=== PATIENT | male | born 1965 | race Caucasian/White ===

== ENCOUNTER 2016-09-18 23:08 | Emergency (ER) | payer OTHER ==
[2016-09-18 23:58] LABS: Hematocrit 45 % (42-52); Hemoglobin 15.1 g/dl (14.0-18.0); Mean Corpuscular HGB Conc 33 g/dl (31-36); Mean Corpuscular Hemoglobin 30 pg (27-31); Mean Corpuscular Volume 90 fL (80-94); Mean Platelet Volume 8 um3 (7.4-10.4); Red Blood Count 5.03 10^6/ul (4.0-5.4); Red Cell Distribution Width 13 % (10.5-15); White Blood Count 8.5 10^3/ul (3.5-10.8)
[2016-09-19 00:09] LABS: Albumin 4.4 g/dL (3.2-5.2); BUN/Creatinine Ratio 13.9 (8-20); Calcium 8.9 mg/dL (8.6-10.3); EGFR African American 56.6 (>60); Potassium 3.6 mmol/L (3.5-5.0); Total Bilirubin 0.4 mg/dL (0.2-1.0); Total Protein 7.4 g/dL (6.4-8.9)
[2016-09-19 00:12] LABS: Troponin I 0.03 ng/mL (<0.04)
[2016-09-19] MEDS ORDERED: NS 0.9% 1000 ML* 1,000 ML IV ONE (00:37)
[2016-09-19 01:42] VITALS: BP 160/83
--- NOTE | 2016-09-19 02:30 | ED ---
Maximiliano Everett Aidan, scribed for William hSore on 09/19/16 at 0013 . HPI Diabetic - HPI Summary HPI Summary: 51 y/o male presents to the ED with a complaint of a diabetes-related issue. He self-administered insulin just before his family sat down to eat dinner, however , before he could eat, he had to blas to the vet for a dog-related emergency. A short time after arriving at the [facility], he became very confused, so his called the ED. Pt denies any CP. - History Of Current Complaint Chief Complaint: EDDiabeticProb Time Seen by Provider: 09/18/16 23:25 Hx Obtained From: Patient Onset/Duration: Sudden Onset, Lasting Minutes, Resolved Timing: Intermittent Episode Lasting Severity Initially: Moderate Severity Currently: Mild Character: Confused Aggravating: Other - unknown Alleviating: Other - unknown Associated Signs & Symptoms: Negative Related History: DM I, Insulin Requiring - Allergies/Home Medications Allergies/Adverse Reactions: Allergies Allergy/AdvReac Type Severity Reaction Status Date / Time No Known Allergies Allergy Verified 09/18/16 23:13 PMH/Surg Hx/FS Hx/Imm Hx Endocrine/Hematology History: Reports: Hx Diabetes Denies: Hx Thyroid Disease Cardiovascular History: Reports: Hx Hypertension Denies: Hx Pacemaker/ICD Respiratory History: Denies: Hx Asthma, Hx Chronic Obstructive Pulmonary Disease (COPD) GI History: Denies: Hx Ulcer Sensory History: Denies: Hx Hearing Aid Psychiatric History: Denies: Hx Panic Disorder - Surgical History Surgery Procedure, Year, and Place: bilateral shoulder 2002, 2006; L knee 1987 ( femur, tendon and knee cap repair) - Immunization History Date of Tetanus Vaccine: utd Date of Influenza Vaccine: utd Infectious Disease History: No Infectious Disease History: Denies: Hx Clostridium Difficile, Hx Hepatitis, Hx Human Immunodeficiency Virus (HIV), Hx of Known/Suspected MRSA, Hx Shingles, Hx Tuberculosis, Hx Known/ Suspected VRE, Hx Known/Suspected VRSA, History Other Infectious Disease, Traveled Outside the [place] in Last 30 Days - Family History Known Family History: Positive: Diabetes - Social History Occupation: Employed Full-time Lives: With Family Alcohol Use: Occasionally Substance Use Type: Reports: None Smoking Status (MU): Never Smoked Tobacco Have You Smoked in the Last Year: No Review of Systems Constitutional: Other - high blood-glucose Negative: Fever, Chills, Fatigue, Skin Diaphoresis Eyes: Negative ENT: Negative Cardiovascular: Negative Respiratory: Negative Gastrointestinal: Negative Genitourinary: Negative Musculoskeletal: Negative Skin: Negative Neurological: Negative Psychological: Normal All Other Systems Reviewed And Are Negative: Yes Physical Exam Triage Information Reviewed: Yes Vital Signs On Initial Exam: Initial Vitals Temp Pulse Resp BP Pulse Ox 98.6 F 73 15 173/77 100 09/18/16 23:10 09/18/16 23:10 09/18/16 23:10 09/18/16 23:10 09/18/16 23:10 Vital Signs Reviewed: Yes Appearance: Positive: Well-Appearing, No Pain Distress Skin: Positive: Warm, Skin Color Reflects Adequate Perfusion, Dry Head/Face: Positive: Normal Head/Face Inspection Eyes: Positive: Normal ENT: Positive: Normal ENT inspection Neck: Positive: Supple, Nontender Respiratory/Lung Sounds: Positive: Clear to Auscultation, Breath Sounds Present Cardiovascular: Positive: RRR Abdomen Description: Positive: Nontender, Soft Bowel Sounds: Positive: Present Musculoskeletal: Positive: Normal Neurological: Positive: Normal Psychiatric: Positive: Affect/Mood Appropriate - [place] Coma Scale Coma Scale Total: 15 Diagnostics - Vital Signs Vital Signs Temp Pulse Resp BP Pulse Ox 09/18/16 23:10 98.6 F 73 15 173/77 100 - Laboratory Lab Results: Lab Results 09/18/16 Range/Units 23:21 POC Glucose (mg/dL) 229 H (74-106) mg/dL Result Diagrams: 09/18/16 23:45 09/18/16 23:45 Lab Statement: Any lab studies that have been ordered have been reviewed, and results considered in the medical decision making process. - EKG EKG 0007 Cardiac Rate: NL - 69 BPM EKG Rhythm: Sinus Rhythm EKG Interpretation: NO ACUTE CHANGES Diabetic Course/Dx - Course Course Of Treatment: pt had labs and ekg done and within normal limits. pt didnt eat after insulin. will dc home to follow up with pmd in three days.The patient's glucose was 229. EKG was normal. Dx of hypoglycemic attack. - Diagnoses Provider Diagnoses: hypoglycemic attack Discharge - Discharge Plan Condition: Stable Disposition: HOME Discharge Disposition Comment: Please return to the ED if symptoms worsen within 72 hours. Patient Education Materials: Hypoglycemia in a Person with Diabetes (ED) Referrals: Andrea Craig MD [Primary Care Provider] - The documentation as recorded by the Maximiliano baldwin Aidan accurately reflects the service I personally performed and the decisions made by me, William Shore.
== END 2016-09-19 01:41 | disposition home or self-care (01) ==
LOC: ED 23:08
DX: E10.649 Type 1 diabetes mellitus with hypoglycemia without coma (principal)
CPT/HCPCS: 36415; 80053; 84484; 85025; 93005; 96360; 99283

== ENCOUNTER 2017-10-13 07:17 | Day surgery (SDC) | payer OTHER ==
[~2017-10-13 07:17] MED LIST: Acetaminophen TAB* 325 MG PO PRN; Buffered Lidocaine 0.9% SYRIN* 5 ML/SYR SYRINGE INTRADERM ONE
[2017-10-13] MEDS ORDERED: Midazolam* 1 MG/ML 2 ML VIAL (2 MG) ONE ×2 (08:30→08:46)
[2017-10-13] MEDS ORDERED: fentaNYL* 50 MCG/ML 2 ML VIAL (100 MCG VIAL) ONE (08:30)
[2017-10-13] MEDS ORDERED: Tetracaine 0.5% OPTH.SOL 4 ML* 1 DROP BTL ONE ×2 (09:10→11:26)
[2017-10-13] MEDS ORDERED: Phenylephrine 2.5% OPTH.SOL* 2 ML BTL ONE ×2 (09:10→11:26)
[2017-10-13] MEDS ORDERED: Carbachol 0.01% OPH.SOL* 1.5 ML OPHTH.SOLN ONE (09:10)
[2017-10-13] MEDS ORDERED: Neomycin/Polymy/Dex OPHTH.OIN* 3.5 GM ONE ×2 (09:10→11:26)
[2017-10-13] MEDS ORDERED: Cyclopentolate 1% OPTH.SOL* 2 ML BTL ONE ×2 (09:10→11:26)
[2017-10-13] MEDS ORDERED: Ketorolac 0.5% OPHTH (NF) 0.5 % 5 ML BTL ONE ×2 (09:10→11:26)
[2017-10-13] MEDS ORDERED: Tropicamide 1% OPTH.SOL* BTL ONE ×2 (09:10→11:26)
[2017-10-13] MEDS ORDERED: Lidocaine 1%* 5 ML VIAL ONE ×2 (09:10→11:26)
[2017-10-13] MEDS ORDERED: Phenylephr/Ketorolac 1%/0.3% OPH DROP BTL ONE ×2 (09:10→11:26)
[2017-10-13 09:23] VITALS: BP 123/74
--- NOTE | 2017-10-13 13:52 | OP ---
DATE OF OPERATION: 10/13/17 - [facility] DATE OF : 63. SURGEON: Matti Cuevas MD. MACHINE BANDER AND CELLOPHANER: None. ANESTHESIA: Topical with intravenous sedation. PRE-OP DIAGNOSIS: Cataract, right eye. POST-OP DIAGNOSIS: Cataract, right eye. OPERATIVE PROCEDURE: Phacoemulsification and cataract extraction with posterior chamber intraocular lens implant, right eye. COMPLICATIONS: None. BLOOD LOSS: None. DESCRIPTION OF PROCEDURE: The patient was brought to the operating room and received a drop of tetracaine to his right eye followed by intravenous sedation. The patient was prepped and draped in the usual sterile fashion for ophthalmic surgery and attention was directed to the right eye where a speculum was placed. A paracentesis was created at the 11 o'clock position and 0.1 cc of 1% preservative-free lidocaine was injected into the anterior chamber followed by DisCoVisc. The eye was digitally stabilized while a 2.75-mm keratome was used to create a triplanar clear corneal incision at the 9 o'clock position. The pupil was noted to measure approximately 4.5 mm. A continuous curvilinear capsulorrhexis was created with a cystotome and Utrata forceps. BSS on a cannula was used to hydrodissect the lens from the capsule. It was noted that the anterior chamber was shallow and the iris had a tendency to herniate through the wound. O[place]ria was added to the irrigating solution as the pupil now measured approximately 3.5 mm. Phacoemulsification was performed in a divide and conquer technique to create four fragments, which were removed. Residual cortical material was removed with irrigation and aspiration. DisCoVisc was used to inflate the capsular bag. An [id number] 27.0 diopter lens was inserted into the capsular bag. DisCoVisc was removed using irrigation and aspiration. Miostat was added into the anterior chamber to pull the iris away from the wound. BSS on a cannula was used to hydrate the corneal stroma and seal the wound. It was then inflate the anterior chamber through the paracentesis site. At the end of the case, the pupil was round measuring approximately 2.5 mm. The lens was centered, stable, and secure. The eye pressure appeared normal and the wound was water tight. The speculum was removed and topical Maxitrol ointment was placed on the surface of the eye. The eye was closed, patched, and shielded, and the patient was sent to the recovery room in stable condition with postoperative instructions and followup appointment given. [id number]/[facility] #: [id number] KINGA
== END 2017-10-13 09:29 | disposition home or self-care (01) ==
LOC: OREAST 07:17
PROVIDERS: ATTEND Ophthalmology
DX: H25.011 Cortical age-related cataract, right eye (principal); E10.9 Type 1 diabetes mellitus without complications; Z79.4 Long term (current) use of insulin; Z96.41 Presence of insulin pump (external) (internal); I10 Essential (primary) hypertension; H52.4 Presbyopia; R01.1 Cardiac murmur, unspecified
CPT/HCPCS: A9270-GY; C9447; J2250; J3010; V2632

== ENCOUNTER 2018-02-20 11:35 | Emergency (ER) | payer OTHER ==
[2018-02-20 11:48] VITALS: BP 134/80
--- NOTE | 2018-02-20 12:25 | UC ---
Throat Pain/Nasal Jag HPI - HPI Summary HPI Summary: 52 y/o female presents to the urgent c/o sinus congestion and drainage for the past 10 days. PT states yesterday he developed redness, itching in his Rt eye and today he woke up w/ B/L eye redness and yellowish crusting discharge. He has tried OTD medication to alleviate symptoms w/o any improvement. sinus pain is 7/10. He has Hx of sinusitis. He has been recently exposed to pink eye. Pt has also PMHX of DM type I. Pt denies fever, dizziness, chest pain, SOB, abdominal pain, N/V/D. - History of Current Complaint Chief Complaint: UCGeneralIllness Stated Complaint: EYE/SINUS COMPLAINT Time Seen by Provider: 02/20/18 12:23 Hx Obtained From: Patient Onset/Duration: Gradual Onset, Lasting Days - 10 days, Still Present, Worse Since - 2 days ago Severity: Moderate Pain Intensity: 6 Pain Scale Used: 0-10 Numeric Cough: Nonproductive Associated Signs & Symptoms: Positive: Sinus Discomfort, Nasal Discharge - yellwosih, Other - B/L eye redness w/ yellwosih discharge. Negative: Fever Related History: Seasonal Allergies, Other (Noted In Comments) - DM type I - Epiglottits Risk Factors Epiglottis Risk Factors: Negative - Allergies/Home Medications Allergies/Adverse Reactions: Allergies Allergy/AdvReac Type Severity Reaction Status Date / Time No Known Allergies Allergy Verified 02/20/18 11:48 Home Medications: Home Medications Acetaminophen [Tylenol] 2 tab PO ONCE PRN 02/20/18 [History Confirmed 02/20/18] Insulin LISPRO* [HumaLOG*] .ROUTE DIRECTED 02/20/18 [History] Insulin Pump Controller 02/20/18 [History] Irbesartan 150 mg PO DAILY 02/20/18 [History Confirmed 02/20/18] PMH/Surg Hx/FS Hx/Imm Hx Previously Healthy: Yes Endocrine History: Diabetes Cardiovascular History: Hypertension GI/ History: Gastroesophageal Reflux - Surgical History Surgical History: Yes Surgery Procedure, Year, and Place: bilateral shoulder 2002, 2006; [facility]. 1988 L knee (femur, tendon and knee cap repair) [facility]. cataracts - Family History Known Family History: Positive: None, Diabetes - Social History Alcohol Use: Weekly Alcohol Amount: FEW DRINKS/WEEK Substance Use Type: None Smoking Status (MU): Never Smoked Tobacco Have You Smoked in the Last Year: No - Immunization History Most Recent Tetanus Shot: 3 yrs ago Review of Systems Constitutional: Negative Skin: Negative Eyes: Drainage - yellowish, Eye Redness - B/L ENT: Nasal Discharge - yellow, Sinus Congestion, Sinus Pain/Tenderness Respiratory: Cough - dry Cardiovascular: Negative Gastrointestinal: Negative Genitourinary: Negative Motor: Negative Neurovascular: Negative Musculoskeletal: Negative Neurological: Negative Psychological: Negative Is Patient Immunocompromised?: No All Other Systems Reviewed And Are Negative: Yes Physical Exam - Summary Physical Exam Summary: Vital Signs Reviewed: Yes General: Well appearing, well nourished adolescent male in no apparent pain distress Eyes: Positive: B/L Conjunctiva Inflamed w/ purulent yellowish eye discharge - Visual acuity: WNL,Visual castañeda: PERRLA, EOMI intact w/out limitation or complaint of pain. eyelashes clear. mild tearing and yellowish drainage observed. No ciliary flush. No chemosis, No photophobia. Normal fundoscopic exam ; no proptosis, exophthalmos, nystagmus. ENT: Positive: Normal ENT inspection, Hearing grossly normal, Pharynx normal, Nasal congestion, Nasal drainage yellowish, positive tenderness to percussion over the frontal and maxillary sinuses, TMs normal - B/L external ear canal clear , TM's WNL. Negative: Tonsillar swelling, Tonsillar exudate Neck: Positive: Supple, Nontender, No Lymphadenopathy Respiratory: Positive: Chest nontender, Lungs clear, Normal breath sounds, No respiratory distress Cardiovascular: Positive: RRR, No Murmur, Pulses Normal, Brisk Capillary Refill Abdomen Description: Positive: Nontender, No Organomegaly, Soft. Negative: CVA Tenderness (R), CVA Tenderness (L) Bowel Sounds: Positive: Present Musculoskeletal: Positive: Strength Intact, ROM Intact, No Edema Neurological Exam: Normal Psychological Exam: Normal Skin Exam: Normal Triage Information Reviewed: Yes Vital Signs: Initial Vital Signs Temp 98 F 02/20/18 11:45 Pulse 72 02/20/18 11:45 Resp 16 02/20/18 11:45 BP 134/80 02/20/18 11:45 Pulse Ox 97 02/20/18 11:45 Throat Pain/Nasal Course/Dx - Course Course Of Treatment: 52 y/o female presents to the urgent c/o sinus congestion and drainage for the past 10 days. PT states yesterday he developed redness, itching in his Rt eye and today he woke up w/ B/L eye redness and yellowish crusting discharge. He has tried OTD medication to alleviate symptoms w/o any improvement. sinus pain is 7/10. He has Hx of sinusitis. He has been recently exposed to pink eye. Pt has also PMHX of DM type I. Pt denies fever, dizziness, chest pain, SOB, abdominal pain, N/V/D. Hx obtained. Pt w/ B/L acute bacterial conjunctivitis and sinusitis on examination.Pt with 10 days of symptoms getting worse. Pt Rx Augmentin PO and flonase nasal spray. Ciprofloxacin ophthalmic drops for his conjunctivitis. Strongly advised to encourage hand washing to avoid spread.. Discharge instructions explained to Pt. Advised to Return to the clinic or PCP if symptoms do not improve.Pt understood and agreed with plan of care. - Differential Dx/Diagnosis Differential Diagnosis/HQI/PQRI: Laryngitis, Pharyngitis, URI, Other - conjunctivitis Provider Diagnoses: 1- B/L acute conjunctivitis. 2-Acute bacterial sinusitis Discharge - Sign-Out/Discharge Documenting (check all that apply): Patient Departure - D/c home All imaging exams completed and their final reports reviewed: No Studies - Discharge Plan Condition: Stable Disposition: HOME Prescriptions: Amoxicillin/Clavulanate TAB* [Augmentin TAB 875*] 875 mg PO BID #20 tab Ciprofloxacin 0.3% OPTH.RHONDA* [Cipro 0.3% Opth*] 1 drop BOTH EYES Q2H #1 btl Fluticasone NASAL SPRAY 50MCG* [Flonase NASAL SPRAY 50MCG*] 2 spray BOTH NARES DAILY #1 btl Patient Education Materials: Sinusitis (ED), Conjunctivitis (ED) Referrals: Andrea Craig MD [Primary Care Provider] - 2 Days Ld Rothman MD [Medical Doctor] - If Needed Additional Instructions: 1- Please increase fluid intake and rest. take full course of antibiotic to avoid resistance 2-Use Flonase Nasal spray as directed to help drain fluid. Also buy saline drops to clear sinuses 3-Apply Ciprofloxacin ophthalmic drops as directed to alleviate conjunctivitis, please encourage hand washing to avoid spreading infection 4-F/U w/ your PCP or [facility] Super[facility] Dr Rothman if symptoms do not improve for further management and treatment - Billing Disposition and Condition Condition: STABLE Disposition: Home
== END 2018-02-20 13:14 | disposition home or self-care (01) ==
LOC: UCEAST 11:35
DX: J01.90 Acute sinusitis, unspecified (principal); B96.89 Other specified bacterial agents as the cause of diseases classified elsewhere; H10.9 Unspecified conjunctivitis; E11.9 Type 2 diabetes mellitus without complications; Z79.4 Long term (current) use of insulin; Z96.41 Presence of insulin pump (external) (internal); I10 Essential (primary) hypertension; K21.9 Gastro-esophageal reflux disease without esophagitis
CPT/HCPCS: 99212; G0463